=== PATIENT | male | born 1950 | race Caucasian/White ===

== ENCOUNTER 2016-08-30 18:10 | Emergency (ER) | payer OTHER, MEDICAID ==
[2016-08-30 18:21] VITALS: RESP 18
--- NOTE | 2016-08-30 18:30 | EDPHY ---
H & P Stated Complaint: Fall, ETOH, Head Lac Time Seen by Provider: 08/30/16 18:28 HPI/ROS: CHIEF COMPLAINT: Fall, head laceration HISTORY OF PRESENT ILLNESS: The patient presents to the ED with a scalp laceration after mechanical fall. The patient does report having alcohol to drink today. The patient reportedly fell while walking. He struck his head. He did not lose consciousness. The patient does complain of a mild frontal headache. The patient reports his last tetanus shot has been within the past 10 years. The patient denies any chest pain, abdominal pain, extremity pain, numbness, weakness or additional complaints. The patient has mild complaints of a frontal headache in the area of his laceration. REVIEW OF SYSTEMS: A comprehensive 10 point review of systems is otherwise negative aside from elements mentioned in the history of present illness. 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; depression - Social History Smoking Status: Heavy smoker - Physical Exam Exam: General Appearance: Alert, alcohol on breath, no acute distress Head: Stellate 1.5 cm laceration over right eyebrow, tenderness to palpation around the right eye Eyes: Pupils equal, round, reactive ENT, Mouth: No hemotympanum, no oral trauma Neck: Nontender, trachea midline Respiratory: No chest wall tender, subcutaneous air, lungs clear bilaterally Cardiovascular: Regular rate and rhythm Abdomen: Abdomen is soft and nontender, pelvis stable Skin: No lacerations, No abrasion Back: No midline T/L/S pain Extremities: Nontender, full range of motion Neurological: A&Ox3, normal motor function, normal sensory exam Constitutional: Initial Vital Signs Temperature (C) 36.9 C 08/30/16 18:19 Heart Rate 69 08/30/16 18:19 Respiratory Rate 18 08/30/16 18:19 Blood Pressure 176/104 H 08/30/16 18:19 O2 Sat (%) 93 08/30/16 18:19 O2 Delivery Mode Room Air O2 (L/minute) 2 Allergies/Adverse Reactions: No Known Allergies Allergy (Verified 08/30/16 18:22) Home Medications: Medication Instructions Recorded NK [No Known Home Meds] 08/30/16 Medical Decision Making - Diagnostics Imaging Results: Imaging Impressions Head CT 08/30/16 18:24 Impression: 1. Stable noncontrast CT appearance of the brain. Encephalomalacia of the right frontal lobe. 2. Complete opacification the right maxillary sinus suggests chronic sinusitis. Results called to Dr. Collin Holguin at 6:45 PM at the time of the interpretation. Procedures: Procedure: Laceration repair with skin glue Verbal consent was obtained from the patient. The 2 cm laceration on the forehead. The wound was irrigated per protocol and explored to its base with a gloved finger. There were no deep structures involved. The wound was repaired with tissue adhesive. The procedure was performed by myself. ED Course/Re-evaluation: The patient presents to the ED for evaluation of a minor head injury with associated alcohol intoxication. Given his complaints of headache he was taken for a CT scan of the head which demonstrates no evidence of a fracture or intracranial hemorrhage. The patient's laceration was irrigated and closed by myself using Dermabond. The patient was kept in the emergency department for serial exams. He continued to have no midline cervical spine tenderness. He has no abdominal pain. He has no additional traumatic injuries noted on exam. The patient was kept in the emergency department for serial exams and sobriety. Re-examination at 8:00 p.m.: The patient continues to clinically sober. His plan is to contact a sober friend to pick him up from the emergency department. [facility] but has declined. Differential Diagnosis: Differential diagnosis considered includes intracranial hemorrhage, skull fracture, laceration, spinal cord injury, cervical spine fracture Departure - Departure Disposition: Home, Routine, Self-Care Clinical Impression: Facial laceration, Alcohol intoxication Condition: Good Instructions: Skin Adhesive Care (ED) Additional Instructions: 1. Return to the emergency department for severe headache, neck pain, numbness , weakness, new painful complaints or other concerns. 2. Avoid excessive consumption of alcohol. 3. You have been given the contact number for the [facility] if you desire assistance with sobriety. Referrals: Patient,NotPresent [Primary Care Provider] - As per Instructions
[2016-08-30 18:51] VITALS: O2SAT 94
[2016-08-30] MEDS ORDERED: SKIN ADHESIVE (DERMABOND) 1 EACH TP ONE (19:09)
[2016-08-30 20:03] VITALS: BP 174/95; PULSE 87; TEMP 98.6
== END 2016-08-30 20:01 | disposition home or self-care (01) ==
LOC: EDUNIT#
PROC: 0HQ1XZZ Repair Face Skin, External Approach (ICD-10-PCS; principal; 2016-08-30)
DX: S01.81XA Laceration without foreign body of other part of head, initial encounter (principal); F17.200 Nicotine dependence, unspecified, uncomplicated; F10.129 Alcohol abuse with intoxication, unspecified; W18.00XA Striking against unspecified object with subsequent fall, initial encounter; Y93.01 Activity, walking, marching and hiking